=== PATIENT | female | born 1945 | race Caucasian/White ===

== ENCOUNTER → 2024-02-09 | Outpatient (CLI) | payer SELFPAY, OTHER ==
--- NOTE | 2024-02-09 12:39 | MRI_ITS ---
STUDY: MRI BRAIN WITH AND WITHOUT CONTRAST REASON FOR EXAM: Female, 78 years old. HEMIFACIAL SPASM RT SIDED TECHNIQUE: Standardized multiplanar fat and water weighted pulse sequences were obtained. IV 14ML CLARISCAN was administered for the contrast portion of the examination. Mild motion artifact is present on the postcontrast images. COMPARISON: None. FINDINGS: There is mild cerebral atrophy with widening of the extra-axial spaces and ventricular dilatation. There are a limited number of small white matter hyperintensities, distributed throughout the deep white matter tracts of the cerebral hemispheres, consistent with mild chronic white matter ischemic changes. There is no evidence for recent intracranial ischemia or other cause of cytotoxic edema on diffusion weighted imaging (DWI). Normal T2* images of the brain without demonstrated susceptibility artifact. There is no demonstrated hemosiderin stain. There are no demyelinating plagues of the supratentorial brain, brainstem or cerebellum. There are no findings suspicious for multiple sclerosis (MS). Normal bilateral basal ganglia. Normal thalami. There is no extra-axial fluid accumulation. Normal flow voids within the major intracranial circulation suggesting patency by spin echo criteria. Normal venous enhancement. There is no enhancing intra-axial or extra-axial abnormality. There are no enhancing lesions of the brain parenchyma. Normal sella turcica, pituitary gland, infundibular stalk, optic chiasm and hypothalamus. Normal tectal plate and pineal gland. Normal midbrain, manjinder and medulla. Normal cerebellum. Normal basal cisterns. Normal bilateral temporal bones. Normal bilateral internal auditory canals. No demonstrated orbital abnormality, within the constraints of a routine brain study. Normal visualized paranasal sinuses. Normal calvarium and skull base. Normal visualized soft tissue structures. Normal visualized upper cervical spine. MRI/Brain W/WO Contrast IMPRESSION: Involutional changes of the brain, as described above. Electronically Signed: Joaquin Porter MD at 14:59 EDT ,
[2024-02-09 13:00] VITALS: BP 163/78; PULSE 95; RESP 16; O2SAT 97
[2024-02-09 13:14] LABS: CREATININE FINGERSTICK 1.1 mg/dL (0.55-1.02)
[2024-02-09 13:15] VITALS: BP 151/73; PULSE 95; RESP 16; O2SAT 93
[2024-02-09 13:30] VITALS: BP 149/74; PULSE 95; RESP 16; O2SAT 93
[2024-02-09 13:45] VITALS: BP 153/76; PULSE 95; RESP 16; O2SAT 91
[2024-02-09 14:00] VITALS: BP 150/74; PULSE 95; RESP 16; O2SAT 96
== END | disposition home or self-care (01) ==
LOC: MRI 12:28
PROVIDERS: PCP Family Medicine; Referring Provider Ophthalmology; Visit Provider Ophthalmology
DX: G51.31 Clonic hemifacial spasm, right (principal)
CPT/HCPCS: 70553; A9575